=== PATIENT | female | born 1985 | race American Indian/Alaskan Native ===

== ENCOUNTER 2019-06-13 16:40 | Emergency (ER) | payer SELFPAY ==
[2019-06-13 16:53] VITALS: BP 106/72
--- NOTE | 2019-06-13 18:23 | Event Note ---
ED Screening Note Date of service: 06/13/19 Time: 18:14 ED Screening Note: 33 y o female presents with lower pelvic pain lmp: 04/22/19 This initial assessment/diagnostic orders/clinical plan/treatment(s) is/are subject to change based on patients health status, clinical progression and re-assessment by fellow clinical providers in the ED. Further treatment and workup at subsequent clinical providers discretion. Patient/guardian urged not to elope from the ED as their condition may be serious if not clinically assessed and managed. Initial orders include: ua,upt
[2019-06-13 21:03] LABS: Bilirubin,Urine NEG (Negative); Blood,Urine LG (Negative); Color,Urine Yellow (Yellow); Mucus,Urine FEW /HPF; Protein,Urine <15 mg/dL mg/dL (Negative); Urobilinogen,Urine < 2.0 mg/dL (<2.0)
[2019-06-13 21:07] LABS: RBC,Urine > 182.0 /HPF (0.0-6.0)
[2019-06-13 21:08] LABS: HCG Qualitative,Urine Negative (Negative)
--- NOTE | 2019-06-13 21:44 | Emergency Department Report ---
ED Female HPI - General Chief complaint: Vaginal Bleeding Stated complaint: 1 MONTH PREG LOWER STOMACH PAIN AND SPOTTING Time Seen by Provider: 06/13/19 21:06 Source: patient Mode of arrival: Ambulatory Limitations: No Limitations - History of Present Illness Initial comments: Ms. Armando is a 33 y o female presents with lower pelvic pain and vaginal bl eeding. states pos preg test at home. believes she is . denies pos for STI. lmp: 04/22/19, there is no fever no chills , no n/v. no abdominal pain. stats hx of AUB . no ovarian cyst or fibroids, pt is G2, P2, A0. MD Complaint: dysuria Onset/Timin -: days(s) Location: suprapubic (old) Severity: moderate (1-year-old) Severity scale (0 -10): 3 Quality: cramping Consistency: constant Improves with: none Worsens with: urination Are you Now?: Yes Associated Symptoms: vaginal bleeding, abdominal pain (abd cramping ), dysuria. denies: nausea/vomiting, fever/chills - Related Data Sexually active: Yes : 2 Para: 2 A: 0 Previous Rx's Medication Instructions Recorded Last Taken Type Ibuprofen [Motrin 800 MG tab] 800 mg PO Q8HR PRN #30 tablet 06/13/19 Unknown Rx Nitrofurantoin Schley/M-Cryst 100 mg PO BID 7 Days #14 capsule 06/13/19 Unknown Rx [Macrobid CAP] Allergies Allergy/AdvReac Type Severity Reaction Status Date / Time No Known Allergies Allergy Unverified 06/13/19 18:17 ED Review of Systems ROS: Stated complaint: 1 MONTH PREG LOWER STOMACH PAIN AND SPOTTING Other details as noted in HPI Constitutional: denies: chills, fever Eyes: denies: eye pain, eye discharge, vision change ENT: denies: ear pain, throat pain Respiratory: no symptoms reported Cardiovascular: denies: chest pain, palpitations Endocrine: no symptoms reported Gastrointestinal: denies: abdominal pain, nausea, diarrhea Genitourinary: urgency, frequency, abnormal menses, other (vaginal bleeding ). denies: dysuria, hematuria, discharge Musculoskeletal: denies: back pain, joint swelling, arthralgia Skin: denies: rash, lesions Neurological: denies: headache, weakness, paresthesias Psychiatric: denies: anxiety, depression Hematological/Lymphatic: denies: easy bleeding, easy bruising ED Past Medical Hx - Past Medical History Previous Medical History?: Yes Hx Hypertension: Yes - Surgical History Past Surgical History?: No - Social History Smoking Status: Never Smoker Substance Use Type: None - Medications Home Medications: Home Medications Medication Instructions Recorded Confirmed Last Taken Type Ibuprofen [Motrin 800 MG tab] 800 mg PO Q8HR PRN #30 tablet 06/13/19 Unknown Rx Nitrofurantoin Schley/M-Cryst 100 mg PO BID 7 Days #14 capsule 06/13/19 Unknown Rx [Macrobid CAP] ED Physical Exam - General Limitations: No Limitations General appearance: alert, in no apparent distress - Head Head exam: Present: atraumatic (is), normocephalic - Eye Eye exam: Present: normal appearance, PERRL, EOMI Pupils: Present: normal accommodation - ENT ENT exam: Present: mucous membranes moist - Neck Neck exam: Present: normal inspection (the), full ROM. Absent: tenderness - Respiratory Respiratory exam: Present: normal lung sounds bilaterally. Absent: respiratory distress, wheezes, stridor - Cardiovascular Cardiovascular Exam: Present: regular rate, normal rhythm, normal heart sounds. Absent: systolic murmur, diastolic murmur, rubs, gallop - GI/Abdominal GI/Abdominal exam: Present: soft, normal bowel sounds. Absent: distended, tenderness, guarding, rebound, rigid, bruit, hernia - Rectal Rectal exam: Present: deferred - External exam: Present: other (exam deferred by patient ) - Extremities Exam Extremities exam: Present: normal inspection, full ROM, normal capillary refill. Absent: tenderness, pedal edema - Back Exam Back exam: Present: normal inspection, full ROM. Absent: tenderness, CVA tenderness (R), CVA tenderness (L), rash noted - Neurological Exam Neurological exam: Present: alert, oriented X3, CN II-XII intact, normal gait - Psychiatric Psychiatric exam: Present: normal affect, normal mood - Skin Skin exam: Present: warm, dry, intact, normal color. Absent: rash ED Course Vital Signs 06/13/19 16:52 Temperature 98.2 F Pulse Rate 92 H Respiratory 18 Rate Blood Pressure 106/72 O2 Sat by Pulse 100 Oximetry ED Medical Decision Making - Lab Data Labs 06/13/19 20:19 Urine Color Yellow Urine Turbidity Slightly-cloudy Urine pH 6.0 Ur Specific Moody 1.012 Urine Protein <15 mg/dl Urine Glucose (UA) Neg Urine Ketones Tr Urine Blood Lg Urine Nitrite Neg Urine Bilirubin Neg Urine Urobilinogen < 2.0 Ur Leukocyte Esterase Lg Urine WBC (Auto) 73.0 H Urine RBC (Auto) > 182.0 U Epithel Cells (Auto) 8.0 Urine Mucus Few Urine HCG, Qual Negative - Medical Decision Making ua consistent with UTI, hcg: neg pt declines STI, or ct r/po stone versus pyelonephritis. plan tx for UTI, follow up with [facility] [employer] doctor in 2-3 days, pt verbalized agreement and understanding of same. Critical care attestation.: If time is entered above; I have spent that time in minutes in the direct care of this critically ill patient, excluding procedure time. ED Disposition Clinical Impression: Abnormal uterine bleeding (AUB) UTI (urinary tract infection) Qualifiers: Urinary tract infection type: acute cystitis Hematuria presence: without hematuria Qualified Code(s): N30.00 - Acute cystitis without hematuria Disposition: - TO HOME OR SELFCARE Is pt being admited?: No Does the pt Need Aspirin: No Condition: Stable Instructions: Dysuria (ED), Dysmenorrhea (ED) Prescriptions: Nitrofurantoin Schley/M-Cryst [Macrobid CAP] 100 mg PO BID 7 Days #14 capsule Ibuprofen [Motrin 800 MG tab] 800 mg PO Q8HR PRN #30 tablet PRN Reason: pain Referrals: FLAKITA BELL MD [Staff Physician] - 3-5 Days Forms: Work/School Release Form(ED) Time of Disposition: 21:41
== END 2019-06-13 21:47 | disposition home or self-care (01) ==
LOC: ED 16:40
DX: N39.0 Urinary tract infection, site not specified (principal); N93.9 Abnormal uterine and vaginal bleeding, unspecified; I10 Essential (primary) hypertension; Z79.899 Other long term (current) drug therapy
CPT/HCPCS: 81001; 81025; 87086